=== PATIENT | male | born 1950 | race Caucasian/White ===

== ENCOUNTER 2018-01-29 12:02 | Day surgery (SDC) | payer MEDICARE ==
[2018-01-28 11:10] VITALS: BMI 34.9
[2018-01-29] MEDS ORDERED: Lidocaine 1% PF 5 ML VIAL ONE (12:26)
[2018-01-29] MEDS ORDERED: Propofol 200 MG/20 ML VIAL ONE (12:26)
[2018-01-29] MEDS ORDERED: Ondansetron HCl/PF 4 MG/2 ML Vial ONE (12:26)
[2018-01-29] MEDS ORDERED: Ketorolac Tromethamine 30 MG/ML VIAL ONE (12:26)
[2018-01-29] MEDS ORDERED: Lidocaine 1% w/Epinephrine 1:200K 30 ML VIAL ONE (15:58)
[2018-01-29] MEDS ORDERED: Oxymetazoline HCl 0.05% ( 15 ML ) ONE ×2 (15:58→16:16)
[2018-01-29] MEDS ORDERED: Bacitracin Zinc Ointment 30 gm TUBE ONE (15:58)
[2018-01-29] MEDS ORDERED: Fentanyl 100 MCG/2 ML VIAL ONE ×2 (16:17→17:49)
[2018-01-29] MEDS ORDERED: Famotidine/PF 20 mg/2ml Vial ONE (16:17)
[2018-01-29 16:30] LABS: Hemoglobin 14.4 g/dL (14.0-18.0)
[2018-01-29 16:38] LABS: Anion Gap 16 mmol/L (10-20); BUN (Urea Nitrogen) 15 mg/dL (8.4-25.7); Calc. Creatinine Clearance 131 mL/min (70-130); Calcium 9.1 mg/dL (7.8-10.44); Carbon Dioxide 25 mmol/L (23-31); Chloride 102 mmol/L (98-107); Estimated GFR-MDRD Greater than 90; Glucose 93 mg/dL (80-115); Potassium 4.5 mmol/L (3.5-5.1); Sodium 138 mmol/L (136-145)
--- NOTE | 2018-01-30 13:21 | OP ---
PREOPERATIVE DIAGNOSES: 1. Chronic rhinosinusitis. 2. Nasal septal deviation. 3. Bilateral inferior turbinate hypertrophy. POSTOPERATIVE DIAGNOSES: 1. Chronic rhinosinusitis. 2. Nasal septal deviation. 3. Bilateral inferior turbinate hypertrophy. PROCEDURES: 1. Bilateral endoscopic sinus surgery, total ethmoidectomies. 2. Bilateral endoscopic sinus surgery, maxillary antrostomies. 3. Bilateral endoscopic sinus surgery, frontal sinusotomies. 4. Nasal septoplasty. 5. Bilateral inferior turbinate submucosal resection. SURGEON: Malick Valadez M.D. ESTIMATED BLOOD LOSS: 50 mL. COMPLICATIONS: None. ANESTHESIA: GETA. PROCEDURE IN DETAIL: Patient was taken to the operating room and placed supine on the table. Genera l endotracheal anesthesia was obtained by the Anesthesia staff. Tube was secured in the left lower l ip. Patient was then placed in the beach chair position, and Afrin pledgets were placed in the nasal cavity. Injections of 1% lidocaine with 1:100,000 epinephrine were made into the nasal septum as we ll as the inferior turbinates. Patient was then prepped and draped in standard surgical fashion for nasal surgery. Following this, the Afrin pledgets were removed. A Danis incision was made on the left nasal septum. Submucoperichondrial dissection was performed. The deviated portions of the sept um included portions of the cartilage and the bony septum. These isolated areas were removed using t hree cutting rongeurs. There was noted to be a large dorsal and caudal strut, left intact for suppor t of the nose. The mucoperichondrial flaps were then reapproximated using a 4-0 gut stitch. Any str aight pieces of cartilage were crushed prior to this and placed between the mucoperichondrial flaps. Following this, the inferior turbinates were then punctured with a submucosal coblation wand, and gardner bmucosal coblations were performed of multiple areas of the inferior portion of the anterior inferior turbinate. Please note that the submucosal microdebrider was used to submucosally resect the anterior-inferior p ortions of the inferior turbinates bilaterally. Following this, the 0-degree scope was advanced into the middle meatus where the middle turbinate was gently medialized using a [place] elevator. The unci rosina process was identified and was anteriorly fractured using a ball-ended probe. Following this, t he uncinate was removed bilaterally using the 0-degree microdebrider and straight [place] forceps. Following this, the natural maxillary ostia was identified and was widened using the straight microd ebrider and curved microdebrider bilaterally. Following this, the ethmoidal bulla was identified and was punctured on its medial and inferior aspect with the microdebrider. Following this, the ethmoid al bulla was removed and the grand lamella was identified posteriorly. The microdebrider was then pu nctured into the posterior ethmoidal cells, and working from posterior to anterior, the ethmoidal khushi ls were opened in a mucosal-sparing technique. Following this, the 45-degree endoscope and the curve d microdebrider blade were used to further resect the frontal recess cells and frontal sinus ostia bi laterally, widened the frontal sinus. Following this, the nasal cavity was irrigated. Jeralds thang e placed. Orellana splints were placed and secured.
== END 2018-01-29 19:50 | disposition home or self-care (01) ==
LOC: SDC 12:02
PROVIDERS: ATTEND Otolaryngology Plastic Surgery within the Head & Neck
PROC: 09BM0ZZ Excision of Nasal Septum, Open Approach (ICD-10-PCS; principal; 2018-01-29)
PROC: 09TV8ZZ Resection of Left Ethmoid Sinus, Via Natural or Artificial Opening Endoscopic (ICD-10-PCS; 2018-01-29)
PROC: 09TU8ZZ Resection of Right Ethmoid Sinus, Via Natural or Artificial Opening Endoscopic (ICD-10-PCS; 2018-01-29)
PROC: 099R8ZZ Drainage of Left Maxillary Sinus, Via Natural or Artificial Opening Endoscopic (ICD-10-PCS; 2018-01-29)
PROC: 099Q8ZZ Drainage of Right Maxillary Sinus, Via Natural or Artificial Opening Endoscopic (ICD-10-PCS; 2018-01-29)
PROC: 099T8ZZ Drainage of Left Frontal Sinus, Via Natural or Artificial Opening Endoscopic (ICD-10-PCS; 2018-01-29)
PROC: 099S8ZZ Drainage of Right Frontal Sinus, Via Natural or Artificial Opening Endoscopic (ICD-10-PCS; 2018-01-29)
DX: J32.9 Chronic sinusitis, unspecified (principal); J34.2 Deviated nasal septum; J34.3 Hypertrophy of nasal turbinates; E11.9 Type 2 diabetes mellitus without complications; I10 Essential (primary) hypertension
CPT/HCPCS: 80048; 85014; 85018; 93005; 93010; J0131; J3010; S0028